=== PATIENT | male | born 1960 ===

== ENCOUNTER 2017-06-10 09:47 | Emergency (ER) | payer SELFPAY ==
[2017-06-10 10:01] VITALS: BP 135/65
--- NOTE | 2017-06-10 10:25 | UC ---
Respiratory Complaint HPI - HPI Summary HPI Summary: c/o cough with dark sputum for the past 3 days, intermittent fever and general malaise. Denies nasal discharge. History of rheumatoid arthritis on methotrexate 20mg po weekly. - History of Current Complaint Chief Complaint: UCRespiratory Stated Complaint: COUGH SORE THROAT Time Seen by Provider: 06/10/17 10:04 - Allergies/Home Medications Allergies/Adverse Reactions: Allergies Allergy/AdvReac Type Severity Reaction Status Date / Time No Known Allergies Allergy Verified 06/10/17 09:53 PMH/Surg Hx/FS Hx/Imm Hx - Additional Past Medical History Additional PMH: rheumatoid arthritis Previously Healthy: Yes - Surgical History Surgical History: Yes Surgery Procedure, Year, and Place: kidney uereter surg right side - Social History Alcohol Use: Occasionally Substance Use Type: None Smoking Status (MU): Never Smoked Tobacco Review of Systems Constitutional: Fever, Chills Respiratory: Cough Is Patient Immunocompromised?: Yes All Other Systems Reviewed And Are Negative: Yes Physical Exam Triage Information Reviewed: Yes Appearance: Well-Appearing Vital Signs: Initial Vital Signs Temp 98 F 06/10/17 09:54 Pulse 111 06/10/17 09:54 Resp 22 06/10/17 09:54 BP 135/65 06/10/17 09:54 Pulse Ox 99 06/10/17 09:54 Vital Signs Reviewed: Yes ENT Exam: Normal Neck exam: Normal Respiratory Exam: Normal Cardiovascular Exam: Normal UC Diagnostic Evaluation - Laboratory O2 Sat by Pulse Oximetry: 99 Respiratory Course/Dx - Course Course Of Treatment: Patient with history of RA with acute bronchitis, course of zithromax prescribed, continue rest and PO fluids - Differential Dx/Diagnosis Provider Diagnoses: Acute Bronchitis Discharge - Discharge Plan Condition: Stable Disposition: HOME Prescriptions: Azithromycin TAB* [Zithromax TAB (Z-MAX) 250 mg #6 tabs] 2 tab PO .TODAY, THEN 1 DAILY #1 max Patient Education Materials: Acute Bronchitis (ED)
== END 2017-06-10 10:24 | disposition home or self-care (01) ==
LOC: UCEAST 09:47
DX: J20.9 Acute bronchitis, unspecified (principal); M06.9 Rheumatoid arthritis, unspecified
CPT/HCPCS: 99202; G0463